=== PATIENT | female | born 1935 | race African-American/Black ===

== ENCOUNTER 2018-05-17 10:52 | Emergency (ER) | payer MEDICARE, MEDICAID ==
[~2018-05-17] VITALS: Ht 144.8 cm; Wt 91.0 kg
[2018-05-17 20:39] VITALS: BP 124/80
== END 2018-05-17 20:40 | disposition home or self-care (01) ==
LOC: ER 10:52
DX: Z51.5 Encounter for palliative care (principal); R41.82 Altered mental status, unspecified; I10 Essential (primary) hypertension; Z86.73 Personal history of transient ischemic attack (TIA), and cerebral infarction without residual deficits
CPT/HCPCS: 93005; 99284